=== PATIENT | female | born 1985 | race Caucasian/White ===

== ENCOUNTER → 2021-05-22 13:02 | Outpatient (CLI) | payer OTHER, SELFPAY ==
[2021-05-22 14:45] LABS: Final Volume 0.5 mL; Semen 30 min. Liquification? Yes
== END ==
PROVIDERS: Referring Provider Obstetrics & Gynecology; Visit Provider Obstetrics & Gynecology
DX: N97.0 Female infertility associated with anovulation (principal)
CPT/HCPCS: 58323

== ENCOUNTER → 2021-11-29 15:58 | Outpatient (CLI) | payer OTHER, SELFPAY ==
[2021-11-29 18:12] LABS: COVID19 -Nasal RAPID Negative (Negative)
== END ==
PROVIDERS: PCP Student in an Organized Health Care Education/Training Program; Visit Provider Obstetrics & Gynecology
DX: Z20.822 Contact with and (suspected) exposure to COVID-19 (principal); Z01.812 Encounter for preprocedural laboratory examination
CPT/HCPCS: 87635

== ENCOUNTER 2021-11-30 10:40 | Day surgery (SDC) | payer OTHER, SELFPAY ==
[2021-11-23 13:27] VITALS: BMI 29.9
[2021-11-30] VITALS (7 sets, daily range): BP systolic 101–113; BP diastolic 66–77; PULSE 54–71; RESP 9–16; TEMP 36.1–36.9; O2SAT 98–100; BMI 28.8
[2021-11-30] MEDS: LACTATED RINGERS 1,000 ML 100 ML IV (11:09)
--- NOTE | 2021-11-30 11:22 | PM.HP.1 ---
History of Present Illness History of Present Illness Date Patient Seen: 11/30/21 Time Patient Seen: 11:22 Chief complaint: [facility] Narrative: Patient is a 36-year-old 3 para 0 who presents for a hysteroscopic resection of a polyp Patient is about to start IVF treatment. Patient History Medical History (Updated 05/22/21 @ 16:19 by Yvette Hamm MD) Abnormal Pap smear of cervix Chicken pox Eczema (~2014) Human papilloma virus Family & Social History Family History (Updated 05/20/21 @ 21:14 by Vita Cummings) Father Cancer Grandmother History of heart disease Grandfather Cancer Grandmother Cancer Social History: household members spouse Tobacco & Substance use: Tobacco type e-cigarettes Smoking Status Current every day smoker alcohol intake never Substance Use Type does not use Meds Home Medications and Allergies Home Medications Medication Instructions Recorded Confirmed Type norgestimate 0.25 mg-ethinyl 1 tab PO DAILY 11/30/21 11/30/21 History estradiol 35 mcg tablet (Harmon-Linyah) Allergies Allergy/AdvReac Type Severity Reaction Status Date / Time Penicillins Allergy Mild itching Verified 11/30/21 10:51 Exam Vital Signs (past 8 hours): - 11/30/21 11:01 Temperature 98.5 F Pulse Rate 67 Respiratory Rate 16 Blood Pressure 113/66 Pulse Oximetry 100 Oxygen Delivery Method Room Air Oxygen Flow Rate 0 Oxygen Delivery Method Room Air Oxygen Flow Rate 0 Narrative Exam Narrative: HEENT: No thyromegaly, no anterior cervical or supraclavicular lymphadenopathy. Lungs:Clear to auscultation bilaterally, no wheezes. Cardiovascular: Regular rate and rhythm, no murmurs, rubs, or gallops. Abdomen: No scars. No hepatosplenomegaly. No masses palpable. External genitalia: Normal Vagina: Normal Cervix: Normal Bimanual exam: 7 Week size anteverted uterus. Mobile. No adnexal masses or tenderness. Extremities: No edema Assessment & Plan Assessment & Plan narrative: Assessment: 36-year-old 3 para 0 with an endometrial polyp Plan: Hysteroscopic resection of the polyp The risks, benefits, and alternatives to the procedure were explained to the patient. The risks including bleeding, infection, and uterine perforation. She understands these risks and agrees to proceed. A full par Q was held and consent form was signed. COVID-19 COVID-19 status: Negative Result date/Date tested (Pos, Neg/Pending): 11/30/21 Time Spent With Patient Time with patient: less than 30 minutes Critical Care time: I spent a total of [] minutes of critical care time on this patient's care today; this time is exclusive of procedural time.
--- NOTE | 2021-11-30 11:24 | PM.PREOP ---
Pre-operative Note COVID-19 COVID-19 status: Negative Result date/Date tested (Pos, Neg/Pending): 11/30/21 Criteria for continued procedure: Non-surgical alternatives not available or appropriate per current SOC Interval Note History & Physical reviewed/Exam performed by Physician: Yes Changes to H&P: No H&P completed within 30 days and has changed as indicated here:: 11/30/21
--- NOTE | 2021-11-30 12:17 | PM.GYNOP.1 ---
Operative Date/Time/Diagnoses Date of procedure: 11/30/21 Time of procedure: 12:17 Pre-op diagnosis: Endometrial polyp Post-op diagnosis: same Procedure & Clinicians Procedure: Procedures Operation Date: 11/30/21 11:45 Actual Procedure Side Surgeon p Diagnostic Hysteroscopy Yvette Hamm MD Indications: Endometrial polyp Surgeon: Yvette Hamm Anesthesia Type: General (LMA) Operative Notes Findings: 7 week size anteverted uterus Both fallopian tube ostia observed No polyps, fibroids, or septum Closure Type: not applicable Specimen(s): none Estimated blood loss (mL): 5 Blood products transfused: none Procedure in detail: After informed consent was obtained, the patient was taken to the operating room where she was placed in the dorsal supine position. After adequate LMA general anesthesia was achieved, she was placed in the dorsal lithotomy position, and prepped and draped in the usual sterile fashion. A time-out was performed. A bivalve speculum was placed into the vagina and the anterior lip of the cervix was grasped with a single-tooth tenaculum. Cervical os was sequentially dilated until the hysteroscope could pass easily into the endometrial cavity. Initial inspection with the hysteroscope revealed the right fallopian tube ostia. The left fallopian tube ostia was obscured by either a polyp or some clot. The hysteroscope was removed. Polyp forceps were used to grasp some clot and remove it from the uterus. The hysteroscope was again passed into the endometrial cavity. There were no polyps near the left fallopian tube ostia. The hysteroscope was removed. The single-tooth tenaculum was removed from the anterior lip of the cervix. The bivalve speculum was removed from the vagina. Sponge, lap, and instrument counts were correct x2. Patient tolerated the procedure well, and was taken to PACU in stable condition. Complications: none Post-operative Condition: stable Disposition: PACU Plan for aftercare: Home after recovery
--- NOTE | 2021-11-30 12:19 | SUR.OPER ---
Lithotomy on padded OR bed, head on pillow, arms secured on padded arm boards at <90 degrees abduction. Legs secured in padded yellow fins stirrups. Patient voided at 1138 prior to entering OR.
== END 2021-11-30 12:58 | disposition home or self-care (01) ==
PROVIDERS: PCP Student in an Organized Health Care Education/Training Program; Referring Provider Obstetrics & Gynecology; Visit Provider Obstetrics & Gynecology
PROC: 0UDB8ZZ Extraction of Endometrium, Via Natural or Artificial Opening Endoscopic (ICD-10-PCS; CPT 58558; principal; 2021-11-30 11:45)
DX: N84.0 Polyp of corpus uteri (principal)
CPT/HCPCS: 58555; J1100; J1885; J2250; J2405; J2704; J3010

== ENCOUNTER → 2022-01-08 14:17 | Outpatient (CLI) | payer OTHER, SELFPAY ==
[2022-01-10 12:09] LABS: Candida species Negative (Negative); Gardnerella vaginalis Positive (Negative); Trichomoas vaginalis Negative (Negative)
== END ==
PROVIDERS: PCP Student in an Organized Health Care Education/Training Program; Visit Provider Physician Assistant Medical
DX: N89.8 Other specified noninflammatory disorders of vagina (principal)
CPT/HCPCS: 87480; 87510; 87660

== ENCOUNTER 2023-06-11 11:15 | Outpatient (RCR) | payer OTHER, SELFPAY ==
--- NOTE | 2023-05-21 13:23 | PT.OPPOC ---
Physical, Occupational & Speech Therapy At [facility] Current Diagnoses Pain in right hip (05/21/23) Muscle weakness (generalized) (05/21/23) Other specified disorders of muscle (05/21/23) Segmental and somatic dysfunction of pelvic region (05/21/23) Visit Care Team Role Provider Type CRISTELA Quesada Attending Provider Non-Staff Family Provider Primary Care Provider Referring Provider Specialty: Nursing Address: [address] [place] [address], [id number] Email: Plan Of Care PT-OP-T Assessment and Plan Start: 05/21/23 11:21 Freq: Status: Active Protocol: Document 05/21/23 09:45 [facility] (Rec: 05/21/23 17:10 [facility] [id number]) Physical Therapy Assessment Rehab Potential Rehabilitation Potential Excellent Evaluation Complexity Number of Personal Factors/Comorbidities 0 Number of Body Systems Impaired 1-2 Clinical Presentation at Evaluation Stable Impairments Impairments Activity Tolerance,Functional Activities,Soft Tissue Mobility,Strength,Tone Goals 3 Impairment transverse abdominal weakness following delivery Short Term Goal (STG) Светлана is educated on progressive abdominal and pelvic floor stabilization exercises STG Duration 4 weeks Custodial Goal (LTG) Светлана presents with improved transverse abdominal stabilization LTG Duration 12 weeks 2 Impairment SI joint instability with + ALSR test on the right and right sided hip pain Emotional Disabilities Teacher Goal (LTG) Светлана is able to stabilize her SI joint with a active SLR without SI unlocking and reports a overall reduction in right sided hip pain LTG Duration 12 weeks 1 Impairment pt lacks a home program for core strengthening Custodial Goal (LTG) Светлана is independent with a home program for post core strengtheing LTG Duration 12 weeks Assessment Summary Assessment Светлана is a 37 year old female 4 months post with delivery with complaints of core weakness and right sided hip ache. She presents with post core weakness and right sided SI joint instability that is most likely aggravating the right hip. She is unable to sleep on the right hip and she does note increase pain . With exam today Светлана presents with decreased strength of the transverse abdominal muscles and + tests for SI instability. I started her today with transverse abdominal activation both on all 4's and in supine and she tolerated this well. She is a good candidate for PT Physical Therapy Plan Frequency and Duration Frequency of Treatment 1x/Week Duration of treatment (weeks) 8 Plan of Care Start Date 05/21/23 Plan of Care End Date 07/16/23 Next Visit Focus/Plan Next Note Type Treatment Note Next Visit Plan pelvic floor and transverse abdominal strengthening exercises, pelvic floor endurance training, assess how светлана does with MET for the right pelvis Plan of Care Dates Plan of Care Start Date 05/21/23 Plan of Care End Date 07/16/23 Electronically Signed by: Tori Phillips, PT 05/22/23 0000 If you are in agreement with this Plan of Care, please return a signed and dated copy. I have reviewed this Plan of Care and certify that the skilled therapy services above are required to meet the patient?s needs. Physician Signature Date Printed Name and Credentials Clinical Instructor Signature Printed Name and Credentials
--- NOTE | 2023-05-21 13:23 | PT.OIE ---
Current Diagnoses Pain in right hip (05/21/23) Muscle weakness (generalized) (05/21/23) Other specified disorders of muscle (05/21/23) Segmental and somatic dysfunction of pelvic region (05/21/23) Past Medical History (Last Updated 05/20/21 @ 21:13 by Vita Cummings) Abnormal Pap smear of cervix Chicken pox Eczema (~2014) Human papilloma virus Visit Care Team Role Provider Type CRISTELA Quesada Attending Provider Non-Staff Family Provider Primary Care Provider Referring Provider Specialty: Nursing Address: [address] [place] [address], [phone] Email: Physical Therapy Initial Evaluation PT-OP-A Visit Information Start: 05/21/23 11:21 Freq: Status: Active Protocol: Document 05/21/23 09:45 [facility] (Rec: 05/21/23 17:05 [facility] [id number]) Out-Patient Physical Therapy Visit Information Visit Information Visit Type Initial Evaluation Visit Start Time 11:15 Visit Stop Time 12:00 Visit Number 1 Evaluation Information Evaluation Date 05/21/23 PT-OP-B Current Condition Start: 05/21/23 11:21 Freq: Status: Active Protocol: Document 05/21/23 09:45 [facility] (Rec: 05/21/23 12:12 [facility] [id number]) Current Condition History of Current Condition Onset Date 4 months ago Current Complaints post weakness, right sided hip pain History of Current Condition 4 months post 12.1 pound baby via c section, she feels her pelvic floor is weak . She feels weak in her core, she is wanting to strengthen and focus on her core strength . She has some numbness across her c section scar. She wants to be proactive with her strengthening. 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 Her pain is in her posterior hip and pain can radiate down the back of the right leg. She does yoga and she feels like this helps. It is a dull ache that she cant seem to get rid of. Treatment Goals Patient/Caregiver Goals Pt's goal include improving her core strength and decreasing right sided hip pain PT-OP-C Subjective Start: 05/21/23 11:21 Freq: Status: Active Protocol: Document 05/21/23 09:45 [facility] (Rec: 05/21/23 17:11 [facility] [id number]) Patient Questionnaires Pelvic Pain and Urgency/Frequency Patient Symptom Scale Pelvic Pain Score 6 OP-PT Pain Assessment Pain Assessment Grid Paper Pain Assessment Grid Completed Yes Location right lateral/posterior hip Intensity 5 Scale Used Numeric (0 - 10) Radiating Location radiating pain down the posterior calf PT-OP-F Manual Assessment Start: 05/21/23 11:21 Freq: Status: Active Protocol: Document 05/21/23 09:45 [facility] (Rec: 05/21/23 17:10 [facility] [id number]) Manual Assessments Soft Tissue Assessment Soft Tissue Mobility Assessment small diastasis proximal to umbilicus with 1 finger width gap scar healed well with small amount of scar tissue present on the right side of the scar right sided iliopsoas, ITB, and quad tightness Joint Mobility Assessment Joint Mobility Assessment hypermobility of the SI joint with right leg shorter in supine and + ASLR right side PT-OP-J Posture/Palpation/Skin Start: 05/21/23 11:21 Freq: Status: Active Protocol: Document 05/21/23 09:45 [facility] (Rec: 05/21/23 17:12 [facility] [id number]) Palpation Assessment Location scar Palpation Details small amount of scar tissue on the right side of the cesection scar PT-OP-K Range of Motion Start: 05/22/23 13:20 Freq: Status: Active Protocol: Document 05/21/23 09:45 [facility] (Rec: 05/22/23 13:20 [facility] [id number]) Hip Goniometric Range of Motion Hip ROM Limitations Hip ROM Limitations Soft Tissue Tightness Comments iliopsoas tightness R>L with + chandra test PT-OP-M Strength Start: 05/21/23 17:12 Freq: Status: Active Protocol: Document 05/21/23 09:45 [facility] (Rec: 05/21/23 17:14 [facility] [id number]) Trunk Strength Trunk Manual Muscle Testing Testing Position Supine Flexion 2+ Poor+ Core Stabilization decreased activation of both the transverse abdominals and pelvic floor, + ASLR test on the right side PT-OP-Q Treatments Start: 05/21/23 11:21 Freq: Status: Active Protocol: Document 05/21/23 09:45 [facility] (Rec: 05/21/23 17:10 [facility] [id number]) Therapeutic Exercises Supine Exercises TA brace with march Reps/Minutes x 10 Comments cues to keep pelvis level Other Exercises quadruped TA brace Reps/Minutes work up to 10 reps holding 10 seconds Comments pt had good understanding of TA recruitment PT-OP-T Assessment and Plan Start: 05/21/23 11:21 Freq: Status: Active Protocol: Document 05/21/23 09:45 [facility] (Rec: 05/21/23 17:10 [facility] [id number]) Physical Therapy Assessment Rehab Potential Rehabilitation Potential Excellent Evaluation Complexity Number of Personal Factors/Comorbidities 0 Number of Body Systems Impaired 1-2 Clinical Presentation at Evaluation Stable Impairments Impairments Activity Tolerance,Functional Activities,Soft Tissue Mobility,Strength,Tone Goals 3 Impairment transverse abdominal weakness following delivery Short Term Goal (STG) Zoey is educated on progresive abdominal and pelvic floor stabilization exercises STG Duration 4 weeks Acid Correction Hand Goal (LTG) Zoey presents with improved transverse abdominal stabilization LTG Duration 12 weeks 2 Impairment SI joint instability with + ALSR test on the right and right sided hip pain Acid Correction Hand Goal (LTG) Zoey is able to stabilize her SI joint with a active SLR without SI unlocking and reports a overall reduction in right sided hip pain LTG Duration 12 weeks 1 Impairment pt lacks a home program for core strengtheing Acid Correction Hand Goal (LTG) Zoey is independent with a home program for post core strengtheing LTG Duration 12 weeks Assessment Summary Assessment Zoey is a 37 year old female 4 months post with delivery with complaints of core weakness and right sided hip ache. She presents with post core weakness and right sided SI joint instability that is most likely aggravating the right hip. She is unable to sleep on the right hip and she does note increase pain . With exam today Zoey presents with decreased strength of the transverse abdominal muscles and + tests for SI instability. I started her today with transverse abdominal activation both on all 4's and in supine and she tolerated this well. She is a good candidate for PT Physical Therapy Plan Frequency and Duration Frequency of Treatment 1x/Week Duration of treatment (weeks) 8 Plan of Care Start Date 05/21/23 Plan of Care End Date 07/16/23 Next Visit Focus/Plan Next Note Type Treatment Note Next Visit Plan pelvic floor and transverse abdominal strengthening exercises, pelvic floor endurance training, assess how zoey does with MET for the right pelvis
--- NOTE | 2023-05-28 16:20 | PT.OTN ---
Current Diagnoses Pain in right hip (05/28/23) Muscle weakness (generalized) (05/28/23) Other specified disorders of muscle (05/28/23) Segmental and somatic dysfunction of pelvic region (05/28/23) Physical Therapy Treatment Note PT-OP-A Visit Information Start: 05/21/23 11:21 Freq: Status: Active Protocol: Document 05/28/23 10:32 [facility] (Rec: 05/28/23 15:07 [facility] [id number]) Out-Patient Physical Therapy Visit Information Visit Information Visit Type Treatment Note Visit Start Time 10:30 Visit Stop Time 11:15 Visit Number 2 Evaluation Information Evaluation Date 05/21/23 PT-OP-B Current Condition Start: 05/21/23 11:21 Freq: Status: Active Protocol: Document 05/21/23 09:45 [facility] (Rec: 05/21/23 12:12 [facility] [id number]) Current Condition History of Current Condition Onset Date 4 months ago Current Complaints post weakness, right sided hip pain History of Current Condition 4 months post 12.1 pound baby via c section, she feels her pelvic floor is weak . She feels weak in her core, she is wanting to strengthen and focus on her core strength . She has some numbness across her c section scar. She wants to be proactive with her strengthening. 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 Her pain is in her posterior hip and pain can radiate down the back of the right leg. She does yoga and she feels like this helps. It is a dull ache that she cant seem to get rid of. Treatment Goals Patient/Caregiver Goals Pt's goal include improving her core strength and decreasing right sided hip pain PT-OP-C Subjective Start: 05/21/23 11:21 Freq: Status: Active Protocol: Document 05/28/23 10:32 [facility] (Rec: 05/28/23 11:20 [facility] [id number]) OP-PT Subjective Patient Comments Patient Comments pt reports its been a tough week as she got her first period post and got a cold. pt notes hip pain is a little better PT-OP-F Manual Assessment Start: 05/21/23 11:21 Freq: Status: Active Protocol: Document 05/21/23 09:45 [facility] (Rec: 05/21/23 17:10 [facility] [id number]) Manual Assessments Soft Tissue Assessment Soft Tissue Mobility Assessment small diastasis proximal to umbilicus with 1 finger width gap scar healed well with small amount of scar tissue present on the right side of the scar right sided iliopsoas, ITB, and quad tightness Joint Mobility Assessment Joint Mobility Assessment hypermobility of the SI joint with right leg shorter in supine and + ASLR right side PT-OP-J Posture/Palpation/Skin Start: 05/21/23 11:21 Freq: Status: Active Protocol: Document 05/21/23 09:45 [facility] (Rec: 05/21/23 17:12 [facility] [id number]) Palpation Assessment Location scar Palpation Details small amount of scar tissue on the right side of the cesection scar PT-OP-K Range of Motion Start: 05/22/23 13:20 Freq: Status: Active Protocol: Document 05/21/23 09:45 [facility] (Rec: 05/22/23 13:20 [facility] [id number]) Hip Goniometric Range of Motion Hip ROM Limitations Hip ROM Limitations Soft Tissue Tightness Comments iliopsoas tightness R>L with + chandra test PT-OP-M Strength Start: 05/21/23 17:12 Freq: Status: Active Protocol: Document 05/21/23 09:45 [facility] (Rec: 05/21/23 17:14 [facility] [id number]) Trunk Strength Trunk Manual Muscle Testing Testing Position Supine Flexion 2+ Poor+ Core Stabilization decreased activation of both the transverse abdominals and pelvic floor, + ASLR test on the right side PT-OP-Q Treatments Start: 05/21/23 11:21 Freq: Status: Active Protocol: Document 05/28/23 10:32 [facility] (Rec: 05/28/23 11:20 [facility] [id number]) Therapeutic Exercises Supine Exercises happy baby stretch Reps/Minutes hold 1-2 min modified squat stretch in supine Reps/Minutes hold 1-2 minutes supine roll outs with theraband Side bilateral Equipment Used level 2 theraband Reps/Minutes 3x10 reps SLR with TA brace Reps/Minutes x 10 each side TA brace with may Reps/Minutes x 10 Comments cues to keep pelvis level Sidelying Exercises clam shells Reps/Minutes 3 x 10 reps Other Exercises EMG biofeedback Other Exercise Name Pelvic floor endurance training Reps/Minutes 10 reps holding 10 seconds and relaxing 10 secons Comments average 26 and max of 60 resting tone of 6.4 uv quadruped TA brace Side bilateral Reps/Minutes x 5 reps holding 5 seconds and relaxing 5 seconds PT-OP-T Assessment and Plan Start: 05/21/23 11:21 Freq: Status: Active Protocol: Document 05/28/23 10:32 [facility] (Rec: 05/28/23 11:20 [facility] [id number]) Physical Therapy Assessment Goals 3 Impairment transverse abdominal weakness following delivery Short Term Goal (STG) Zoey is educated on progresive abdominal and pelvic floor stabilization exercises STG Duration 4 weeks Intermediate Goal (LTG) Zoey presents with improved transverse abdominal stabilization LTG Duration 12 weeks 2 Impairment SI joint instability with + ALSR test on the right and right sided hip pain Network Control Operator Goal (LTG) Zoey is able to stabilize her SI joint with a active SLR without SI unlocking and reports a overall reduction in right sided hip pain LTG Duration 12 weeks 1 Impairment pt lacks a home program for core strengtheing Network Control Operator Goal (LTG) Zoey is independent with a home program for post core strengtheing LTG Duration 12 weeks Assessment Summary Assessment Zoey did well with core stabilization today and has improved from last visit with her supine march test. I did start EMG biofeedback with her for pelvic floor stabilization today. She presents with Elevated tone of the pelvic floor at rest at 6 .0 uv. She was given hip stretches to help reduce pelvic floor resting tone and promote full ability to relax her pelvic floor. We will reassess next visit but this may be contributing to the right sided posterior gluteal pain she is experiencing Physical Therapy Plan Frequency and Duration Frequency of Treatment 1x/Week Duration of treatment (weeks) 8 Plan of Care Start Date 05/21/23 Plan of Care End Date 07/16/23 Therapeutic Interventions Therapeutic Interventions Home Exercise Program,Manual Therapy,Neuromuscular Re- education,Patient/Caregiver Education,Self-Care/Home Management,Sensory Integration ,Soft Tissue Mobilization, Therapeutic Activities, Therapeutic Exercises Next Visit Focus/Plan Next Note Type Treatment Note Next Visit Plan review stretches and stabilization exercises next visit, recheck resting tone of the pelvic floor
--- NOTE | 2023-06-11 12:41 | PT.OTN ---
Current Diagnoses Pain in right hip (06/11/23) Muscle weakness (generalized) (06/11/23) Other specified disorders of muscle (06/11/23) Segmental and somatic dysfunction of pelvic region (06/11/23) Physical Therapy Treatment Note PT-OP-A Visit Information Start: 05/21/23 11:21 Freq: Status: Active Protocol: Document 06/11/23 11:15 [facility] (Rec: 06/12/23 12:34 [facility] [id number]) Out-Patient Physical Therapy Visit Information Visit Information Visit Type Treatment Note Visit Start Time 11:15 Visit Stop Time 12:00 Visit Number 3 PT-OP-B Current Condition Start: 05/21/23 11:21 Freq: Status: Active Protocol: Document 05/21/23 09:45 [facility] (Rec: 05/21/23 12:12 [facility] [id number]) Current Condition History of Current Condition Onset Date 4 months ago Current Complaints post weakness, right sided hip pain History of Current Condition 4 months post 12.1 pound baby via c section, she feels her pelvic floor is weak . She feels weak in her core, she is wanting to strengthen and focus on her core strength . She has some numbness across her c section scar. She wants to be proactive with her strengthening. 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 Her pain is in her posterior hip and pain can radiate down the back of the right leg. She does yoga and she feels like this helps. It is a dull ache that she cant seem to get rid of. Treatment Goals Patient/Caregiver Goals Pt's goal include improving her core strength and decreasing right sided hip pain PT-OP-C Subjective Start: 05/21/23 11:21 Freq: Status: Active Protocol: Document 06/11/23 11:15 [facility] (Rec: 06/11/23 17:10 [facility] [id number]) OP-PT Subjective Patient Comments Patient Comments pt notes she will be joining a gym in [place] when she leaves . She wont be back until the end of September pt notes its still uncomfortable to sleep on her right side PT-OP-F Manual Assessment Start: 05/21/23 11:21 Freq: Status: Active Protocol: Document 05/21/23 09:45 [facility] (Rec: 05/21/23 17:10 [facility] [id number]) Manual Assessments Soft Tissue Assessment Soft Tissue Mobility Assessment small diastasis proximal to umbilicus with 1 finger width gap scar healed well with small amount of scar tissue present on the right side of the scar right sided iliopsoas, ITB, and quad tightness Joint Mobility Assessment Joint Mobility Assessment hypermobility of the SI joint with right leg shorter in supine and + ASLR right side PT-OP-J Posture/Palpation/Skin Start: 05/21/23 11:21 Freq: Status: Active Protocol: Document 05/21/23 09:45 [facility] (Rec: 05/21/23 17:12 [facility] [id number]) Palpation Assessment Location scar Palpation Details small amount of scar tissue on the right side of the cesection scar PT-OP-K Range of Motion Start: 05/22/23 13:20 Freq: Status: Active Protocol: Document 05/21/23 09:45 [facility] (Rec: 05/22/23 13:20 [facility] [id number]) Hip Goniometric Range of Motion Hip ROM Limitations Hip ROM Limitations Soft Tissue Tightness Comments iliopsoas tightness R>L with + chandra test PT-OP-M Strength Start: 05/21/23 17:12 Freq: Status: Active Protocol: Document 05/21/23 09:45 [facility] (Rec: 05/21/23 17:14 [facility] [id number]) Trunk Strength Trunk Manual Muscle Testing Testing Position Supine Flexion 2+ Poor+ Core Stabilization decreased activation of both the transverse abdominals and pelvic floor, + ASLR test on the right side PT-OP-Q Treatments Start: 05/21/23 11:21 Freq: Status: Active Protocol: Document 06/11/23 11:15 [facility] (Rec: 06/11/23 17:10 [facility] [id number]) Therapeutic Exercises Supine Exercises bridges with ball squeeze Reps/Minutes x 10 reps happy baby stretch Reps/Minutes hold 1-2 min modified squat stretch in supine Reps/Minutes hold 1-2 minutes SLR with TA brace Reps/Minutes x 10 each side TA brace with may Reps/Minutes x 10 Comments cues to keep pelvis level Standing Exercises standing sidebends Reps/Minutes x 5 Other Exercises wag the tail Reps/Minutes x 10 reps quadruped TA brace Side bilateral Reps/Minutes x 5 reps holding 5 seconds and relaxing 5 seconds PT-OP-T Assessment and Plan Start: 05/21/23 11:21 Freq: Status: Active Protocol: Document 06/11/23 11:15 [facility] (Rec: 06/11/23 17:10 [facility] [id number]) Physical Therapy Assessment Goals 3 Impairment transverse abdominal weakness following delivery Short Term Goal (STG) Zoey is educated on progresive abdominal and pelvic floor stabilization exercises goal met STG Duration 4 weeks Penitentiary Goal (LTG) Zoey presents with improved transverse abdominal stabilization goal met LTG Duration 12 weeks 2 Impairment SI joint instability with + ALSR test on the right and right sided hip pain Penitentiary Goal (LTG) Zoey is able to stabilize her SI joint with a active SLR without SI unlocking and reports a overall reduction in right sided hip pain Zoey has been instructed in a HEP for SI joint stabilization LTG Duration 12 weeks 1 Impairment pt lacks a home program for core strengtheing Top Screw Goal (LTG) Zoey is independent with a home program for post core strengtheing goal met LTG Duration 12 weeks Assessment Summary Assessment I added on opp arm and leg lifts for Zoey in quadruped and she is tolerating increased abdominal stabilization. She is showing good improvements with her strength. 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 She will be discharged at this time to a [facility]. I would be happy to reinitiate care once she returns Physical Therapy Plan Discharge Physical Therapy Discharge Comments Zoey is moving to [place] for the next three months while her is on deployment. She will be discharged from PT at this time
--- NOTE | 2023-06-12 12:41 | PT.OPDS ---
Current Diagnoses Pain in right hip (06/11/23) Muscle weakness (generalized) (06/11/23) Other specified disorders of muscle (06/11/23) Segmental and somatic dysfunction of pelvic region (06/11/23) Visit Care Team Role Provider Type CRISTELA Quesada Attending Provider Non-Staff Family Provider Primary Care Provider Referring Provider Specialty: Nursing Address: [address] [place] [address], [phone] Email: Visit Number Visit Number 3 Discharge Summary PT-OP-B Current Condition Start: 05/21/23 11:21 Freq: Status: Active Protocol: Document 05/21/23 09:45 [facility] (Rec: 05/21/23 12:12 [facility] [id number]) Current Condition History of Current Condition Onset Date 4 months ago Current Complaints post weakness, right sided hip pain History of Current Condition 4 months post 12.1 pound baby via c section, she feels her pelvic floor is weak . She feels weak in her core, she is wanting to strengthen and focus on her core strength . She has some numbness across her c section scar. She wants to be proactive with her strengthening. 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 Her pain is in her posterior hip and pain can radiate down the back of the right leg. She does yoga and she feels like this helps. It is a dull ache that she cant seem to get rid of. Treatment Goals Patient/Caregiver Goals Pt's goal include improving her core strength and decreasing right sided hip pain PT-OP-C Subjective Start: 05/21/23 11:21 Freq: Status: Active Protocol: Document 06/11/23 11:15 [facility] (Rec: 06/11/23 17:10 [facility] [id number]) OP-PT Subjective Patient Comments Patient Comments pt notes she will be joining a gym in [place] when she leaves . She wont be back until the end of September pt notes its still uncomfortable to sleep on her right side PT-OP-F Manual Assessment Start: 05/21/23 11:21 Freq: Status: Active Protocol: Document 05/21/23 09:45 [facility] (Rec: 05/21/23 17:10 [facility] [id number]) Manual Assessments Soft Tissue Assessment Soft Tissue Mobility Assessment small diastasis proximal to umbilicus with 1 finger width gap scar healed well with small amount of scar tissue present on the right side of the scar right sided iliopsoas, ITB, and quad tightness Joint Mobility Assessment Joint Mobility Assessment hypermobility of the SI joint with right leg shorter in supine and + ASLR right side PT-OP-J Posture/Palpation/Skin Start: 05/21/23 11:21 Freq: Status: Active Protocol: Document 05/21/23 09:45 [facility] (Rec: 05/21/23 17:12 [facility] [id number]) Palpation Assessment Location scar Palpation Details small amount of scar tissue on the right side of the cesection scar PT-OP-K Range of Motion Start: 05/22/23 13:20 Freq: Status: Active Protocol: Document 05/21/23 09:45 [facility] (Rec: 05/22/23 13:20 [facility] [id number]) Hip Goniometric Range of Motion Hip ROM Limitations Hip ROM Limitations Soft Tissue Tightness Comments iliopsoas tightness R>L with + chandra test PT-OP-M Strength Start: 05/21/23 17:12 Freq: Status: Active Protocol: Document 05/21/23 09:45 [facility] (Rec: 05/21/23 17:14 [facility] [id number]) Trunk Strength Trunk Manual Muscle Testing Testing Position Supine Flexion 2+ Poor+ Core Stabilization decreased activation of both the transverse abdominals and pelvic floor, + ASLR test on the right side PT-OP-T Assessment and Plan Start: 05/21/23 11:21 Freq: Status: Active Protocol: Document 06/11/23 11:15 [facility] (Rec: 06/11/23 17:10 [facility] [id number]) Physical Therapy Assessment Goals 3 Impairment transverse abdominal weakness following delivery Short Term Goal (STG) Zoey is educated on progresive abdominal and pelvic floor stabilization exercises goal met STG Duration 4 weeks Skilled Nursing Goal (LTG) Zoey presents with improved transverse abdominal stabilization goal met LTG Duration 12 weeks 2 Impairment SI joint instability with + ALSR test on the right and right sided hip pain [employer]per Goal (LTG) Zoey is able to stabilize her SI joint with a active SLR without SI unlocking and reports a overall reduction in right sided hip pain Zoey has been instructed in a HEP for SI joint stabilization LTG Duration 12 weeks 1 Impairment pt lacks a home program for core strengtheing [employer] Furn[employer] Helper Goal (LTG) Zoey is independent with a home program for post core strengtheing goal met LTG Duration 12 weeks Assessment Summary Assessment I added on opp arm and leg lifts for Zoey in quadruped and she is tolerating increased abdominal stabilization. She is showing good improvements with her strength. 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 She will be discharged at this time to a [facility] HEP. 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 She will be discharged from PT at this time
== END 2023-06-13 13:13 | disposition home or self-care (01) ==
LOC: PHYS 11:15
PROVIDERS: Family Provider Nurse Practitioner Family; PCP Nurse Practitioner Family; Referring Provider Nurse Practitioner Family; Visit Provider Nurse Practitioner Family
DX: M99.05 Segmental and somatic dysfunction of pelvic region (principal); M62.81 Muscle weakness (generalized); M62.89 Other specified disorders of muscle; M25.551 Pain in right hip
CPT/HCPCS: 97110; 97161